=== PATIENT | female | born 1980 | race Caucasian/White ===

== ENCOUNTER → 2016-09-13 | Outpatient (CLI) | payer BC ==
--- NOTE | ~2016-09-13 | US24 ---
[facility] A Service of [facility] RADIOLOGY TEXT RESULTS PATIENT: SAPNA BAIG LOCATION: [facility] : 84 UNIT #: [id number] AGE: [address]: Ngozi Anderson APRN SEX: F ORDER DR: [id number] [place], [place] [address] [id number] O MR#: [id number] Acc #: [id number] NAME: SAPNA BAIG. : 1980 SEX: F STUDY DATE/TIME: 09/13/2016 16:03 UNIT: [facility] ROOM: STUDY DESCRIPTION: US Breast Unilateral Attending Physician: Ngozi Anderson A.P.R.N. Referring Physician: Ngozi Anderson A.P.R.N. Ordering Physician: Ngozi Anderson A.P.R.N. Primary Care Physician: Ngozi Anderson A.P.R.N. MEDICAL IMAGING REPORT This report is preliminary unless electronic signature is present EXAM Targeted right breast ultrasound. DATE OF EXAM 09/13/2016 INDICATIONS 36-year-old female presenting for 6-month followup of a benign biopsy of a palpable area of concern in a region of dense breast tissue in the upper hemisphere right breast. She reports no new problems or interval enlargement or change of the area in the 12 o'clock position right breast. TECHNIQUE CC, MLO and true lateral views of the right breast were obtained and reviewed with an FDA approved CAD device. Targeted ultrasound of the 11 o'clock to 1 o'clock positions was also performed. COMPARISON STUDIES Mammography examinations at the [facility] 01/18/2016 and 01/16/2016. Ultrasound 01/16/2016. FINDINGS Please see the diagnostic mammogram same date for results. Patients over the age of 40 are entered into a reminder system with target due date for the next mammogram. A result letter will also be sent to the patient. BIRADS: 3 Probably benign finding; short interval followup suggested. Dictated by... [facility] A Service of [facility] & [facility] RADIOLOGY TEXT RESULTS PATIENT: SAPNA BAIG LOCATION: [facility] : 84 UNIT #: [id number] AGE: [address]: Ngozi Anderson APRN SEX: F ORDER DR: Jamie Fernandez M.D. THIS IS AN ELECTRONICALLY VERIFIED REPORT Jamie Fernandez M.D. at 09/16/2016 7:31 AM Kathleen TD: 09/13/2016 18:43 JOB #: [id number] MEDICAL IMAGING REPORT Page 1 of 1 COPY
--- NOTE | ~2016-09-13 | MY8 ---
[facility] A Service of [facility] RADIOLOGY TEXT RESULTS PATIENT: SAPNA BAIG LOCATION: [facility] : 84 UNIT #: [id number] AGE: [address]: Ngozi Anderson APRN SEX: F ORDER DR: [id number] [facility] [address] [place], [place] [address] [id number] O MR#: [id number] Acc #: [id number] NAME: SAPNA BAIG : 1980 SEX: F STUDY DATE/TIME: 09/13/2016 15:42 UNIT: [facility] ROOM: STUDY DESCRIPTION: MY Mammogram Dx Dig Rt Attending Physician: Ngozi Anderson A.P.R.N. Referring Physician: Ngozi Anderson A.P.R.N. Ordering Physician: Ngozi Anderson A.P.R.N. Primary Care Physician: Ngozi Anderson A.P.R.N. MEDICAL IMAGING REPORT This report is preliminary unless electronic signature is present EXAM Right digital diagnostic mammogram with CAD and targeted right breast ultrasound 09/13/2016 INDICATIONS 36-year-old female presenting for 6-month followup of a benign biopsy of a palpable area of concern in a region of dense breast tissue in the upper hemisphere right breast. She reports no new problems or interval enlargement or change of the area in the 12 o'clock position right breast. CC, MLO and true lateral views of the right breast were obtained and reviewed with an FDA approved CAD device. Targeted ultrasound of the 11 o'clock to 1 o'clock positions was also performed. COMPARISON STUDIES Mammography examinations at the [facility] 01/18/2016 and 01/16/2016. Ultrasound 01/16/2016 FINDINGS MAMMOGRAPHIC FINDINGS: The breast parenchyma is heterogeneously dense. This degrades sensitivity of screening mammography. There is no new dominant nodule, mass or suspicious cluster of microcalcifications. Heterogeneously dense breast tissue is present throughout the breast. The previously biopsied area of dense breast tissue in the 12 o'clock posterior right breast is best demonstrated on the CC projection and does not appear appreciably changed with the exception of the biopsy clip now present at the site of the biopsy. No adenopathy or new skin thickening. Targeted ultrasound of the 11-1 o'clock positions was thereafter performed. ULTRASOUND FINDINGS: The patient was initially scanned independently by the technologist and then rescanned in my presence. Imaging of the 11 o'clock through 1 o'clock positions demonstrates heterogeneously dense breast tissue from 11 through 1 o'clock most prominent at the 12 o'clock [facility] of [facility] RADIOLOGY TEXT RESULTS PATIENT: SAPNA BAIG LOCATION: [facility] : 84 UNIT #: [id number] AGE: [address]: Ngozi Anderson APRN SEX: F ORDER DR: position. There is no suspicious area of persistent shadowing or new distinct solid or cystic mass. Imaging findings are concordant. Suggest a repeat mammogram in 6 months to document 1 year of stability. Findings and recommendations were discussed with the patient. She has voiced understanding and agreement. IMPRESSION The diagnostic mammogram and targeted right breast ultrasound demonstrate benign-appearing dense breast tissue in the 12 o'clock region right breast. This is concordant with the reported pathology findings which were benign. Suggest repeat mammogram on the right and 6 months to document 1 year stability. Findings and recommendations were discussed with the patient. She voiced understanding and agreement. Patients over the age of 40 are entered into a reminder system with target due date for the next mammogram. A result letter will also be sent to the patient. BIRADS: 3 - Probably benign finding - Short interval followup suggested Dictated by... Jamie Fernandez M.D. THIS IS AN ELECTRONICALLY VERIFIED REPORT Jamie Fernandez M.D. at 09/16/2016 7:31 AM Minh TD: 09/13/2016 18:30 JOB #: [id number] MEDICAL IMAGING REPORT Page 1 of 1 COPY
== END | disposition home or self-care (01) ==
LOC: CWCC 14:59
DX: R92.8 Other abnormal and inconclusive findings on diagnostic imaging of breast (principal)
CPT/HCPCS: 76641; G0206